=== PATIENT | male | born 1935 | race Caucasian/White ===

== ENCOUNTER 2017-02-21 10:00 | Day surgery (SDC) | payer MEDICARE, OTHER ==
[2017-02-14 12:16] LABS: APPEARANCE,URINE CLEAR; BILIRUBIN,URINE NEGATIVE (NEGATIVE); GLUCOSE, URINE NEGATIVE (NEGATIVE); KETONES,URINE NEGATIVE (NEGATIVE); LEUKOCYTE ESTERASE,URINE NEGATIVE (NEGATIVE); NITRITE,URINE NEGATIVE (NEGATIVE); PROTEIN,URINE NEGATIVE (NEGATIVE); UROBILINOGEN,URINE NEGATIVE mg/dL (<2.0)
[2017-02-14 12:21] LABS: ABSOLUTE EOSINOPHILS # (AUTO) 0.3 10^3/uL (0.0-0.6); ABSOLUTE MONOCYTES (AUTO) 0.5 10^3/uL (0.1-1.4); ABSOLUTE NEUT (AUTO) 2.2 10^3/uL (1.7-8.2); BASOPHILS % (AUTO) 0.5 % (0-2); EOSINOPHILS % (AUTO) 7.1 % (0-6); HEMATOCRIT 46.6 % (37.9-51.0); HGB HCT DIFFERENCE 1.4; LYMPHOCYTES % (AUTO) 24.8 % (13-45); MEAN CORPUSCULAR HEMOGLOBIN 33.1 pg (27.0-33.4); MEAN CORPUSCULAR HGB CONC 34.4 g/dL (32.0-36.0); MEAN CORPUSCULAR VOLUME 96 fl (80-97); MONOCYTES % (AUTO) 13.2 % (3-13); RED BLOOD COUNT 4.84 10^6/uL (4.35-5.55); RED CELL DISTRIBUTION WIDTH 13.9 % (11.5-14.0); SEGMENTED NEUTROPHILS % (AUTO) 54.4 % (42-78); WHITE BLOOD COUNT 4.1 10^3/uL (4.0-10.5)
--- NOTE | 2017-02-14 12:47 | EKG REPORT ---
SEVERITY:- OTHERWISE NORMAL ECG - SINUS RHYTHM LEFT AXIS DEVIATION : Confirmed by: Sha Ferrer 14-Feb-2017 12:47:08
[2017-02-14 12:55] LABS: ANION GAP 11 (5-19); BLOOD UREA NITROGEN 24 mg/dL (7-20); CARBON DIOXIDE 26 mmol/L (22-30); CHLORIDE 106 mmol/L (98-107); CREATININE RESULT 1.09 mg/dL (0.52-1.25); GLUCOSE 81 mg/dL (75-110); POTASSIUM 5.2 mmol/L (3.6-5.0)
[~2017-02-21 10:00] MED LIST: CLINDAMYCIN 600 MG/D5W RTU 600 MG/50 ML RTUPB IV PRN
[2017-02-21] MEDS ORDERED: LIDOCAINE 1% INJ-PF (10 MG/ML) 30 ML SDV ONE ×2 (10:12→11:37)
[2017-02-21] MEDS ORDERED: BUPIVACAINE HCL 0.5 % INJ/PF 30 ML SDV ONE (10:12)
[2017-02-21] MEDS ORDERED: FENTANYL CITRATE INJ/PF 100 MCG/2 ML AMPUL ONE ×3 (11:22→11:54)
[2017-02-21] MEDS ORDERED: PROPOFOL INJ 200 MG/20 ML VIAL IV ONE ×2 (11:22→11:37)
[2017-02-21] MEDS ORDERED: ONDANSETRON HCL INJ/PF 4 MG/2 ML SDV ONE (11:22)
[2017-02-21] MEDS ORDERED: MIDAZOLAM 2 MG/2 ML INJ ONE (11:22)
[2017-02-21] MEDS ORDERED: LIDOCAINE 2% INJ-PF (20 MG/ML) 10 ML AMPUL ONE (11:23)
[2017-02-21] MEDS ORDERED: FENTANYL CITRATE INJ/PF 100 MCG/2 ML AMPUL IV PRN ×3 (12:08)
[2017-02-21] MEDS ORDERED: MEPERIDINE HCL/PF INJ 25 MG/1 ML DISP.SYRIN IV PRN (12:08)
[2017-02-21] MEDS ORDERED: ONDANSETRON HCL INJ/PF 4 MG/2 ML SDV IV PRN ×2 (12:08→13:26)
[2017-02-21] MEDS ORDERED: DIPHENHYDRAMINE HCL 50 MG/ML VIAL IV PRN (12:08)
[2017-02-21] MEDS ORDERED: HYDROCODONE/ACETAMINOPHEN 5-325 MG TABLET PO PRN (13:26)
--- NOTE | 2017-02-21 13:26 | Operative Report ---
Operative Report DATE OF SURGERY: 02/21/17 PREOPERATIVE DIAGNOSIS: Recurrent Carpal Tunnel Syndrome Right Wrist POSTOPERATIVE DIAGNOSIS: Recurrent Carpal Tunnel Syndrome Right Wrist OPERATION: 1. Revision Right Carpal Tunnel Release w/ Hypothenar Fat Pad Transfer, Placement of Axogen Nerve Wrap. 2. Flexor tenosynovectomy SURGEON: JACQUES CAAL ANESTHESIA: LMAC COMPLICATIONS: None ESTIMATED BLOOD LOSS: Minimal PROCEDURE: Indication for above procedure: 81-year-old male with history of carpal tunnel syndrome. In 2005 He Underwent Carpal Tunl. release for which he got good results with. He then began having recurrent symptoms over the past few years which has worsened to the point that it is causing weakness and difficulty performing daily activity. Conservative management was attempted including injections which provided short but not long- term relief. After discussing risks and benefits of revision carpal tunnel surgery the decision was made to proceed with operative intervention. Procedure In Detail: Patient was seen and evaluated in the preoperative holding area. The LEFT upper extremity was initialized and marked. Patient received Ancef IV for bacterial prophylaxis. Patient was taken back to the operative room where transferred operative table. Patient was then placed under MAC anesthesia. Once adequately anesthetized, a nonsterile tourniquet was placed on the upper extremity. A surgical team debriefing was performed ensuring all instrumentation was available, the surgical procedure was discussed with possible concerns reviewed. Skin was prepped with alcohol a 50:50 20 mL mixture of 1% lidocaine and 0.5% Marcaine plain was injected locally and w/in carpal canal. The upper extremity was prepped with chlorhexidine and alcohol and draped in a sterile fashion. A timeout was done identifying correct patient, procedure and extremity everyone in attendance agree with this and verbalized no concerns.The extremity was then exsanguinated the tourniquet was inflated to 250 mmHg. Longitudinal skin incision was made in line with the radial border of the ring finger and extended over the wrist flexion crease w/ a norma type incision. Blunt dissection was performed proximally until the median nerve was identified in a normal-appearing tissue. Neuro lysis was then performed in a distal direction until postoperative scar was encountered. I then released the palmar fascia until the transverse carpal ligament remanent and scar tissue were identified. Once again the median nerve was identified proximally until it entered the carpal canal at this level of the remanent transverse carpal ligament and postoperative scar tissue was released along its ulnar border to the level of the adipose overlying the superficial palmar arch. Within the carpal canal the median nerve was explored there was significant compression at the wrist flexion crease with moderate tenosynovium. A tenosynovectomy was then performed. A external neuro lysis was performed to the median nerve freeing it from any adjacent soft tissue including the radial leaflet of the transverse carpal ligament. The recurrent motor branch was identified and neurolysed as well. Given the significant scar tissue throughout the median nerve volarly and superficially decision was made to place a Axogen nerve wrap. The nerve wrap was placed on the back table and saline once the adequate consistency was placed loosely around the nerve and secured with horizontal mattress nylon suture. I then turned my attention to hypo-thenar fat pad transfer. The hyperthenar fat was carefully elevated from the superficial dermis the ulnar neurovascular bundle including the branch to the fourth webspace was identified and protected. Once the palmaris brevis attachment to the dermis was identified dissection was performed bluntly in a dorsal direction. I then identified the ulnar neurovascular bundle once again dissected from the ulnar leaflet of the transverse carpal ligament to the ulnar artery to allow further excursion of my adipose flap taking special care to avoid devascularization. The ulnar leaflet of the transverse carpal ligament was excised. Once I had adequate excursion the hyperthenar fat was then secured to the radial leaflet of the transverse carpal ligament with 3-0 Vicryl suture. With wrist range of motion there was good stability of the flap and good coverage of the median nerve to avoid recurrent scarring. The wound was copiously irrigated with normal saline. Tourniquet was deflated any bleeding was controlled with bipolar cautery into the wound was dry. Skin was closed with 3-0 nylon suture. Wound was dressed with Xeroform 4 x 4's and patient was placed in a volar resting splint in the neutral position. Sponge counts, instrument counts, needle counts counts were correct. Patient was then awoken from anesthesia. Transferred from the operating room table to the operating room stretcher. There was no intraoperative complications patient tolerated procedure well stable to PACU. Postoperative plan: Patient will follow-up the office in 2 weeks for wound check and suture removal. He will begin range of motion at that time.
[2017-02-21 14:48] VITALS: BP 121/71
== END 2017-02-21 14:50 | disposition home or self-care (01) ==
LOC: OROUT 10:00
PROVIDERS: ATTEND Orthopaedic Surgery
PROC: 3E0T3GC Introduction of Other Therapeutic Substance into Peripheral Nerves and Plexi, Percutaneous Approach (ICD-10-PCS; 2017-02-21)
PROC: 01N50ZZ Release Median Nerve, Open Approach (ICD-10-PCS; principal; 2017-02-21 12:00)
DX: G56.03 Carpal tunnel syndrome, bilateral upper limbs (principal); I10 Essential (primary) hypertension; E78.00 Pure hypercholesterolemia, unspecified; J45.909 Unspecified asthma, uncomplicated; Z87.891 Personal history of nicotine dependence; Z88.0 Allergy status to penicillin; Z88.8 Allergy status to other drugs, medicaments and biological substances; Z85.51 Personal history of malignant neoplasm of bladder; M25.531 Pain in right wrist; Z79.82 Long term (current) use of aspirin; Z79.51 Long term (current) use of inhaled steroids
CPT/HCPCS: 93005; 36415 ×2; 84132; 85025; 80048; 81001; 93010; 64721; 14040; 64999; J2250; J3010; J3490 ×2; J2405; J2704; 1810